=== PATIENT | female | born 1950 ===

== ENCOUNTER 2021-06-22 07:31 | Emergency (ER) | payer MEDICARE ==
[~2021-06-22 07:31] MED LIST: CALCIUM CHLORIDE 1,000 MG/10 ML SYRINGE IV ONE; EPINEPHrine 1 MG/10 ML SYRINGE ONE; NALOXONE 2 MG/2 ML INJ ONE; SODIUM BICARB 8.4% 50 MEQ/50 ML SYRINGE IV ONE
--- NOTE | 2021-06-22 07:49 | Emergency Department Report ---
ED General Adult HPI - General Stated complaint: CARDIAC ARREST PUI?: No Time Seen by Provider: 06/22/21 07:44 Source: EMS Mode of arrival: Stretcher Limitations: Altered Mental Status - History of Present Illness Initial comments: cardiac arrest found down by her family outside , no recent history of illness , ems admisintered epi times 4 and bicarb and calcium no spont poulse or breathing -: hour(s) ED Review of Systems ROS: Stated complaint: CARDIAC ARREST Other details as noted in HPI Comment: Unobtainable due to pts medical conditions Constitutional: denies: chills, fever Eyes: denies: eye pain, eye discharge, vision change ENT: denies: ear pain, throat pain Respiratory: denies: cough, shortness of breath, wheezing Cardiovascular: denies: chest pain, palpitations Endocrine: no symptoms reported Gastrointestinal: denies: abdominal pain, nausea, diarrhea Genitourinary: denies: urgency, dysuria, discharge Musculoskeletal: denies: back pain, joint swelling, arthralgia Skin: denies: rash, lesions Neurological: denies: headache, weakness, paresthesias Psychiatric: denies: anxiety, depression Hematological/Lymphatic: denies: easy bleeding, easy bruising ED Past Medical Hx - Past Medical History Hx Hypertension: Yes Hx Diabetes: Yes Hx Renal Disease: Yes ED Physical Exam - General Limitations: Altered Mental Status General appearance: other (unresponsive ) - Head Head exam: Present: atraumatic - Eye Pupils: Present: other (fixed ) - ENT ENT exam: Present: other (black secretion ) - Respiratory Respiratory exam: Present: other (apneic ) - Cardiovascular Cardiovascular Exam: Present: other (no spontaneous pulse ) - GI/Abdominal GI/Abdominal exam: Present: soft - Neurological Exam Neurological exam: Present: other (unresponsive ) - Skin Skin exam: Present: other (very cold wet ) ED Course - Reevaluation(s) Reevaluation #1: 06/22/21 07:49 intubated on arrival epi given bicarb and calicum, narcan given no reposnsse , pronounced at 0739 06/22/21 07:50 CPR done under my supervision - Intubation Time Out Performed: Yes Sedative: none Laryngoscope: none Size: 3 Assist Device Used: fiberoptic device ET Tube Size: 7.5 Tube Secured Depth (cm): 24 Tube Secured Location: lips Tube Placement Confirmation: visualized tube passing t, equal breath sounds bilat, no breath sounds over epi, confirmation by capnometr Patient Tolerated Procedure: no complications Intubation Complications: none Critical care attestation.: If time is entered above; I have spent that time in minutes in the direct care of this critically ill patient, excluding procedure time. ED Disposition Clinical Impression: Cardiac arrest Disposition: 20 Is pt being admited?: No Does the pt Need Aspirin: No Condition: Undetermined
== END 2021-06-22 09:00 ==
LOC: ED 07:31
DX: I46.9 Cardiac arrest, cause unspecified (principal); I10 Essential (primary) hypertension; E11.9 Type 2 diabetes mellitus without complications
CPT/HCPCS: 31500; 99285; J0171; J2310; J3490